=== PATIENT | female | born 1965 | race Caucasian/White ===

== ENCOUNTER → 2016-08-14 | Outpatient (CLI) | payer BC ==
--- NOTE | 2016-08-21 19:34 | ECHO ---
The echocardiogram report can be seen in this patient's EMR in the Reports section. RAUDEL
== END ==
LOC: MW.US 14:02
PROVIDERS: ATTEND Internal Medicine
DX: I48.91 Unspecified atrial fibrillation (principal)
CPT/HCPCS: 93306

== ENCOUNTER → 2016-08-27 | Outpatient (CLI) | payer BC | END | disposition home or self-care (01) | LOC: MW.RT 13:16 | PROVIDERS: ADMIT Internal Medicine; ATTEND Internal Medicine | DX: I48.91 Unspecified atrial fibrillation (principal); E03.9 Hypothyroidism, unspecified; Z79.899 Other long term (current) drug therapy | CPT/HCPCS: 93270 ==

== ENCOUNTER 2016-12-25 21:19 | Observation (INO) | payer BC ==
[2016-12-25] MEDS ORDERED: Diltiazem 25 MG/5 ML SDV IVPUSH ONE (21:30)
[2016-12-25] MEDS ORDERED: Diltiazem 100 MG in Sodium Chloride 0.9% 100 ML IV SCH (21:30)
[2016-12-25] MEDS ORDERED: Aspirin 81 MG Tab.Chew PO ONE (21:31)
[2016-12-25] MEDS ORDERED: Sodium Chloride 0.9% 1,000 ML IV ONE (21:31)
[2016-12-25] MEDS ORDERED: Sodium Chloride 0.9% 2.5 ML Syringe FLUSH PRN (21:31)
[2016-12-25] MEDS ORDERED: Sodium Chloride 0.9% 10 ML Syringe FLUSH PRN (21:31)
--- NOTE | 2016-12-25 21:39 | EDM.PDOC ---
ED HPI GENERAL MEDICAL PROBLEM - General Stated Complaint: UNK Time Seen by Provider: 12/25/16 21:31 Source of Information: Reports: Patient, Family History Limitations: Reports: No Limitations - History of Present Illness INITIAL COMMENTS - FREE TEXT/NARRATIVE: HISTORY AND PHYSICAL: []50-year-old female presenting with atrial fibrillation with rapid ventricular response History of Present Illness: []Patient with history of rapid atrial fibrillation with rapid ventricular response that responded in the past to Cardizem Patient sees Dr. Romero Review of Systems: As per history of present illness and below otherwise all systems reviewed and negative. Past medical history: As per history of present illness and as reviewed below otherwise noncontributory. Surgical history: As per history of present illness and as reviewed below otherwise noncontributory. Social history: No reported history of drug or alcohol abuse. Family history: As per history of present illness and as reviewed below otherwise noncontributory. Physical exam: Alert and oriented female not short of breath when she is speaking in full sentences HEENT: Atraumatic, normocehpalic, pupils reactive, negative for conjunctival pallor or scleral icterus, mucous membranes moist, throat clear, neck supple, nontender, trachea midline. Lungs: Clear to auscultation, breath sounds equal bilaterally, chest non tender. Heart: S1S2, regular, negative for clicks, rubs, or JVD. Abdomen: Soft, nondistended, nontender. Negative for masses or hepatossplenmegaly. Negative for costovertebral tenderness. Pelvis: Stable nontender. Genitourinary: Deferred. Rectal: Deferred Extremities: Atraumatic, negative for cords or calf pain. Neurovascular unremarkable. Neuro: Awake, alert, oriented. Cranial nerves II through XII unremarkable. Cerebellum unremarkable. Motor and sensory unremarkable throughout. Exam nonfocal. 10 mg Cardizem given IV push reduced her rate to 80s -100s. Discussed patient with Dr. Sanches was agreeable to refer for observation on October Cardizem drip Diagnostics: [Chest pain protocol] Therapeutics: [Cardizem 10 mg push/Cardizem drip] Impression: [Atrial fibrillation with rapid ventricular response ] Plan: [Referred for observation/ICU Definitive disposition and diagnosis as appropriate pending reevaluation and review of above. Onset: Sudden Duration: Hour(s): Location: Reports: Chest - Related Data Allergies Allergy/AdvReac Type Severity Reaction Status Date / Time No Known Allergies Allergy Verified 07/06/16 11:40 Home Meds: Home Meds Levothyroxine Sodium [Synthroid] 125 mcg PO ACBRK 10/28/14 [History] Aspirin [Low Dose Aspirin EC] 81 mg PO DAILY #30 tablet. 07/07/16 [Rx] Past Medical History Endocrine/Metabolic History: Reports: Hypothyroidism - Infectious Disease History Infectious Disease History: Reports: Chicken Pox - Past Surgical History Other Musculoskeletal Surgeries/Procedures:: carpal tunnel to both wrists and R heel bone spurs removed Social & Family History - Family History Cardiac: Reports: Afib - Tobacco Use Smoking Status *Q: Never Smoker - Caffeine Use Caffeine Use: Reports: Soda - Recreational Drug Use Recreational Drug Use: No Drug Use in Last 12 Months: No ED ROS GENERAL - Review of Systems Review Of Systems: ROS reveals no pertinent complaints other than HPI. ED EXAM, GENERAL - Physical Exam Exam: See Below (See dictation) Course - Vital Signs Last Recorded V/S: Last Vital Signs Temp 36.9 C 12/25/16 21:33 Pulse 146 H 12/25/16 21:33 Resp 18 12/25/16 21:33 BP 181/99 H 12/25/16 21:33 Pulse Ox 94 L 12/25/16 21:33 - Orders/Labs/Meds Orders: Active Orders 24 hr Category Date Time Status Cardiac Monitoring [RC] . DIRECTED Care 12/25/16 21:31 Active EKG Documentation Completion [RC] STAT Care 12/25/16 21:31 Active Oxygen Therapy [RC] ASDIRECTED Care 12/25/16 21:31 Active Chest 1V Frontal [CR] Stat Exams 12/25/16 21:31 Ordered CBC WITH AUTO DIFF [HEME] Stat Lab 12/25/16 21:31 Ordered COMPREHENSIVE METABOLIC PN,CMP [CHEM] Stat Lab 12/25/16 21:31 Ordered MAGNESIUM [CHEM] Stat Lab 12/25/16 21:59 Ordered TROPONIN I [CHEM] Stat Lab 12/25/16 21:31 Ordered Diltiazem [Cardizem] 100 mg Med 12/25/16 21:30 Active Sodium Chloride 0.9% [Normal Saline] 100 ml IV TITRATE Sodium Chloride 0.9% [Normal Saline] 1,000 ml Med 12/25/16 21:31 Active IV .Bolus Sodium Chloride 0.9% [Saline Flush] Med 12/25/16 21:31 Active 10 ml FLUSH ASDIRECTED PRN Sodium Chloride 0.9% [Saline Flush] Med 12/25/16 21:31 Active 2.5 ml FLUSH ASDIRECTED PRN Saline Lock Insert [OM.PC] Stat Oth 12/25/16 21:31 Ordered Medication Orders Diltiazem HCl 100 mg/ Sodium (Chloride) 100 mls @ 10 mls/hr IV TITRATE FERNANDO; 10 MG/HR PRN Reason: Protocol Sodium Chloride (Normal Saline) 1,000 mls @ 999 mls/hr IV .Bolus ONE Stop: 12/25/16 22:31 Sodium Chloride (Saline Flush) 10 ml FLUSH ASDIRECTED PRN PRN Reason: Keep Vein Open Sodium Chloride (Saline Flush) 2.5 ml FLUSH ASDIRECTED PRN PRN Reason: Keep Vein Open Meds: Medications Generic Name Dose Route Start Last Admin Trade Name Freq PRN Reason Stop Dose Admin Diltiazem HCl 100 mg/ Sodium 100 mls @ 10 mls/hr 12/25/16 21:30 Chloride IV TITRATE FERNANDO Protocol 10 MG/HR Sodium Chloride 1,000 mls @ 999 mls/hr 12/25/16 21:31 Normal Saline IV 12/25/16 22:31 .Bolus ONE Sodium Chloride 10 ml 12/25/16 21:31 Saline Flush FLUSH ASDIRECTED PRN Keep Vein Open Sodium Chloride 2.5 ml 12/25/16 21:31 Saline Flush FLUSH ASDIRECTED PRN Keep Vein Open Discontinued Medications Generic Name Dose Route Start Last Admin Trade Name Freq PRN Reason Stop Dose Admin Aspirin 324 mg 12/25/16 21:31 Aspirin PO 12/25/16 21:32 ONETIME ONE Diltiazem HCl 10 mg 12/25/16 21:30 12/25/16 21:44 Diltiazem IVPUSH 12/25/16 21:31 10 mg ONETIME ONE Administration Departure - Departure Time of Disposition: 22:09 Disposition: Refer to Observation Condition: Fair Clinical Impression: Atrial fibrillation with RVR Atrial fibrillation Qualifiers: Atrial fibrillation type: unspecified Qualified Code(s): I48.91 - Unspecified atrial fibrillation - My Orders Last 24 Hours: My Active Orders 12/25/16 21:30 Diltiazem [Cardizem] 100 mg Sodium Chloride 0.9% [Normal Saline] 100 ml IV TITRATE 12/25/16 21:31 Cardiac Monitoring [RC] . DIRECTED EKG Documentation Completion [RC] STAT Oxygen Therapy [RC] ASDIRECTED Chest 1V Frontal [CR] Stat CBC WITH AUTO DIFF [HEME] Stat COMPREHENSIVE METABOLIC PN,CMP [CHEM] Stat TROPONIN I [CHEM] Stat Sodium Chloride 0.9% [Normal Saline] 1,000 ml IV .Bolus Sodium Chloride 0.9% [Saline Flush] 10 ml FLUSH ASDIRECTED PRN Sodium Chloride 0.9% [Saline Flush] 2.5 ml FLUSH ASDIRECTED PRN Saline Lock Insert [OM.PC] Stat 12/25/16 21:59 MAGNESIUM [CHEM] Stat - Assessment/Plan Last 24 Hours: My Active Orders 12/25/16 21:30 Diltiazem [Cardizem] 100 mg Sodium Chloride 0.9% [Normal Saline] 100 ml IV TITRATE 12/25/16 21:31 Cardiac Monitoring [RC] . DIRECTED EKG Documentation Completion [RC] STAT Oxygen Therapy [RC] ASDIRECTED Chest 1V Frontal [CR] Stat CBC WITH AUTO DIFF [HEME] Stat COMPREHENSIVE METABOLIC PN,CMP [CHEM] Stat TROPONIN I [CHEM] Stat Sodium Chloride 0.9% [Normal Saline] 1,000 ml IV .Bolus Sodium Chloride 0.9% [Saline Flush] 10 ml FLUSH ASDIRECTED PRN Sodium Chloride 0.9% [Saline Flush] 2.5 ml FLUSH ASDIRECTED PRN Saline Lock Insert [OM.PC] Stat 12/25/16 21:59 MAGNESIUM [CHEM] Stat
[2016-12-25 22:30] LABS: CHLORIDE,CL 110 mmol/L (98-110); SODIUM,NA 145 mmol/L (136-146)
[2016-12-26] MEDS ORDERED: Acetaminophen 325 MG Tab PO PRN (00:41)
--- NOTE | 2016-12-26 00:53 | PCM.HP ---
H&P History of Present Illness - General Admit Problem/Dx: Admission Diagnosis/Problem Admission Diagnosis/Problem Atrial fibrillation - History of Present Illness Initial Comments - Free Text/Narative: 51 yo female with pmh of paroxysmal atrial fibrillation with who was admitted five months ago for atrial fibrillation with RVR. She was doing well until this month she noticed a return of her palpitations. her palpitation are normally short lived but today her palpitations did no go away. She discontinued her metorpolol after being on it for two months due to side effect of fatigue. She was seen in the ED and noted to be in atrial fibrillation with ventricular rate of 160 bpm. She was started on a diltiazem drip in the ED. She had a normal echocardiogram on 08/14/16 with EF of 60%. - Related Data Allergies/Adverse Reactions: Allergies Allergy/AdvReac Type Severity Reaction Status Date / Time No Known Allergies Allergy Verified 07/06/16 11:40 Home Medications: Home Meds RX: Levothyroxine Sodium [Synthroid] 125 mcg PO ACBRK 10/28/14 [History] RX: Aspirin [Low Dose Aspirin EC] 81 mg PO DAILY #30 tablet.dr 07/07/16 [Rx] Diltiazem HCl [Diltiazem 24Hr Cd] 120 mg PO DAILY #30 cap.er.24h 12/26/16 [Rx] Past Medical History Cardiovascular History: Reports: Afib Endocrine/Metabolic History: Reports: Hypothyroidism - Infectious Disease History Infectious Disease History: Reports: Chicken Pox - Past Surgical History Other Musculoskeletal Surgeries/Procedures:: carpal tunnel to both wrists and R heel bone spurs removed Social & Family History - Family History Family Medical History: Noncontributory Cardiac: Reports: Afib - Tobacco Use Smoking Status *Q: Never Smoker Second Hand Smoke Exposure: No - Caffeine Use Caffeine Use: Reports: Soda - Recreational Drug Use Recreational Drug Use: No Drug Use in Last 12 Months: No H&P Review of Systems - Review of Systems: Review Of Systems: ROS reveals no pertinent complaints other than HPI. Exam - Exam Exam: See Below - Vital Signs Vital Signs: Last Vital Signs Temp 36.8 C 12/25/16 23:09 Pulse 88 12/25/16 23:09 Resp 18 12/25/16 23:09 BP 126/82 12/25/16 23:09 Pulse Ox 95 12/25/16 23:09 Weight: 87.09 kg - Exam General: Alert, Oriented, 4 HEENT: Mucosa Moist & [place] Cardiovascular: Regular Rate, Irregular Rhythm GI/Abdominal Exam: Normal Bowel Sounds, Soft, Non-Tender, No Organomegaly, No Distention, No Abnormal Bruit, No Mass, Pelvis Stable Extremities: No Pedal Edema Skin: Warm, Dry, Intact - Patient Data Lab Results Last 24 hrs: Laboratory Results - last 24 hr 12/25/16 12/25/16 12/25/16 Range/Units 22:03 22:03 22:03 WBC 6.35 (4.0-11.0) K/uL RBC 4.56 (4.30-5.90) M/uL Hgb 13.3 (12.0-16.0) g/dL Hct 40.9 (36.0-46.0) % MCV 89.7 (80.0-98.0) fL MCH 29.2 (27.0-32.0) pg MCHC 32.5 (31.0-37.0) g/dL RDW Std Deviation 42.3 (28.0-62.0) fl RDW Coeff of Mariano 13 (11.0-15.0) % Plt Count 236 (150-400) K/uL MPV 10.40 (7.40-12.00) fL Neut % (Auto) 53.1 (48.0-80.0) % Lymph % (Auto) 31.8 (16.0-40.0) % [place] % (Auto) 11.7 (0.0-15.0) % Eos % (Auto) 2.8 (0.0-7.0) % Baso % (Auto) 0.6 (0.0-1.5) % Neut # (Auto) 3.4 (1.4-5.7) K/uL Lymph # (Auto) 2.0 (0.6-2.4) K/uL [place] # (Auto) 0.7 (0.0-0.8) K/uL Eos # (Auto) 0.2 (0.0-0.7) K/uL Baso # (Auto) 0.0 (0.0-0.1) K/uL Nucleated RBC % 0.0 /100WBC Nucleated RBCs # 0 K/uL Sodium 145 (136-146) mmol/L Potassium 4.0 (3.5-5.1) mmol/L Chloride 110 (98-110) mmol/L Carbon Dioxide 26 (21-31) mmol/L BUN 22 (6.0-23.0) mg/dL Creatinine 0.8 (0.6-1.5) mg/dL Est Cr Clr Drug Dosing 76.13 mL/min Estimated GFR (MDRD) > 60.0 ml/min Glucose 101 (60-110) mg/dL Calcium 9.2 (8.8-10.8) mg/dL Magnesium (1.5-2.3) mEq/L Total Bilirubin 0.3 (0.1-1.5) mg/dL AST 24 (5-40) IU/L ALT 32 (8-54) IU/L Alkaline Phosphatase 111 (40-150) Troponin I < 0.10 (0.0-0.29) NG/ML Total Protein 7.2 (6.0-8.0) g/dL Albumin 4.1 (3.5-5.0) g/dL Globulin 3.1 (2.0-3.5) g/dL Albumin/Globulin Ratio 1.3 (1.3-2.8) 12/25/16 Range/Units 22:03 WBC (4.0-11.0) K/uL RBC (4.30-5.90) M/uL Hgb (12.0-16.0) g/dL Hct (36.0-46.0) % MCV (80.0-98.0) fL MCH (27.0-32.0) pg MCHC (31.0-37.0) g/dL RDW Std Deviation (28.0-62.0) fl RDW Coeff of Mariano (11.0-15.0) % Plt Count (150-400) K/uL MPV (7.40-12.00) fL Neut % (Auto) (48.0-80.0) % Lymph % (Auto) (16.0-40.0) % [place] % (Auto) (0.0-15.0) % Eos % (Auto) (0.0-7.0) % Baso % (Auto) (0.0-1.5) % Neut # (Auto) (1.4-5.7) K/uL Lymph # (Auto) (0.6-2.4) K/uL [place] # (Auto) (0.0-0.8) K/uL Eos # (Auto) (0.0-0.7) K/uL Baso # (Auto) (0.0-0.1) K/uL Nucleated RBC % /100WBC Nucleated RBCs # K/uL Sodium (136-146) mmol/L Potassium (3.5-5.1) mmol/L Chloride (98-110) mmol/L Carbon Dioxide (21-31) mmol/L BUN (6.0-23.0) mg/dL Creatinine (0.6-1.5) mg/dL Est Cr Clr Drug Dosing mL/min Estimated GFR (MDRD) ml/min Glucose (60-110) mg/dL Calcium (8.8-10.8) mg/dL Magnesium 1.9 (1.5-2.3) mEq/L Total Bilirubin (0.1-1.5) mg/dL AST (5-40) IU/L ALT (8-54) IU/L Alkaline Phosphatase (40-150) Troponin I (0.0-0.29) NG/ML Total Protein (6.0-8.0) g/dL Albumin (3.5-5.0) g/dL Globulin (2.0-3.5) g/dL Albumin/Globulin Ratio (1.3-2.8) Result Diagrams: 12/25/16 22:03 12/26/16 06:07 *Q Meaningful Use (ADM) - VTE *Q VTE Criteria *Q: - Stroke *Q Stroke Criteria *Q: - AMI *Q AMI Criteria *Q: Problem List Initiated/Reviewed/Updated: Yes Orders Last 24hrs: Active Orders 24 hr Category Date Time Status Antiembolic Devices [RC] PER UNIT ROUTINE Care 12/26/16 00:44 Ordered Oxygen Therapy [RC] PRN Care 12/26/16 00:32 Ordered Up ad Kathia [RC] ASDIRECTED Care 12/26/16 00:32 Ordered VTE/DVT Education [RC] PER UNIT ROUTINE Care 12/26/16 00:32 Ordered Vital Signs [RC] Q4H Care 12/26/16 00:32 Ordered Regular Diet [DIET] Diet 12/26/16 Breakfast Ordered BASIC METABOLIC PANEL,BMP [CHEM] AM Lab 12/26/16 05:11 Ordered TROPONIN I [CHEM] Q6H Lab 12/26/16 06:00 Ordered TROPONIN I [CHEM] Q6H Lab 12/26/16 12:00 Ordered Acetaminophen [Tylenol] Med 12/26/16 00:41 Ordered 650 mg PO Q4H PRN Diltiazem [Cardizem] Med 12/26/16 00:45 Ordered 30 mg PO Q6HR Enoxaparin [Lovenox] Med 12/26/16 09:00 Ordered 40 mg SUBCUT DAILY Sequential Compression Device [OM.PC] Per Unit Routine Oth 12/26/16 00:43 Ordered Resuscitation Status Routine Resus Stat 12/26/16 00:32 Ordered Medication Orders Acetaminophen (Tylenol) 650 mg PO Q4H PRN PRN Reason: Pain (Mild 1-3)/fever Diltiazem HCl (Cardizem) 30 mg PO Q6HR FERNANDO Enoxaparin Sodium (Lovenox) 40 mg SUBCUT DAILY FERNANDO Diltiazem HCl 100 mg/ Sodium (Chloride) 100 mls @ 10 mls/hr IV TITRATE FERNANDO; 10 MG/HR PRN Reason: Protocol Last Titration: 12/25/16 21:53 Dose: 5 mg/hr, 5 mls/hr Admin: 12/25/16 21:53 Dose: 10 mg/hr, 10 mls/hr Sodium Chloride (Saline Flush) 10 ml FLUSH ASDIRECTED PRN PRN Reason: Keep Vein Open Sodium Chloride (Saline Flush) 2.5 ml FLUSH ASDIRECTED PRN PRN Reason: Keep Vein Open Assessment/Plan Comment:: 51 yo female admitted with atrial fibrillation with RVR. We will start Cardizem PO and titrate for rate control while weaning off diltiazem drip. Patient is on daily ASA at home and will resume.
[2016-12-26] MEDS: Diltiazem IR 30 MG Tab PO SCH ×3 (01:50→11:54)
[2016-12-26 06:37] LABS: CHLORIDE,CL 112 mmol/L (98-110); SODIUM,NA 143 mmol/L (136-146)
[2016-12-26] MEDS ORDERED: Enoxaparin 40 MG/0.4 ML Syringe SUBCUT SCH (09:00)
--- NOTE | 2016-12-26 09:55 | CR ---
EXAM DATE: 12/25/16 PATIENT'S AGE: 51 Patient: JEROME MILTON Facility: [place], [place] Site . Site : [id number] Study: XRay Chest [id number] 10:23:58 PM Ordering Physician: Doctor Lobo Final Report: INDICATION: pain CHEST, ONE VIEW An AP radiograph of the chest was performed. Comparison: 07/06/2016. The lungs appear clear and no pleural effusions are identified. The cardiomediastinal silhouette and pulmonary vasculature appear normal, as do the visualized bones. IMPRESSION: No acute intrathoracic abnormality identified. ANGELA RIBERA MD [employer] Dictated by: Cas Ribera MD @ 12/25/2016 22:27:20 (Electronic Signature) Report Signed by Proxy. [facility]
--- NOTE | 2016-12-26 12:16 | PCM.DCSUM1 ---
Discharge Summary - Discharge Data Discharge Date: 12/26/16 Discharge Disposition: Home, Self-Care 01 Condition: Good - Patient Summary/Data Hospital Course: Admission diagnosis Atrial fibrillation with RVR. 51 yo female with pmh of paroxysmal atrial fibrillation who was admitted for atrial fibrillation with RVR. She was doing well until this month she noticed a return of her palpitations. Her palpitation are normally short lived but the day of admission her palpitations did no go away. he was seen in the ED and noted to be in atrial fibrillation with ventricular rate of 160 bpm. She was started on a diltiazem drip in the ED. She was started on oral diltiazem and titrated off the diltiazem drip. Her heart rate off the diltiazem drip has been 70s-90. She was discharged home with diltiazem CR 120mg daily with daily aspirin. She is to follow up with Dr. Paiz and Dr. Nolan. - Patient Instructions Diet: Regular Diet as Tolerated Activity: As Tolerated - Discharge Plan Prescriptions/Med Rec: Diltiazem HCl [Diltiazem 24Hr Cd] 120 mg PO DAILY #30 cap.er.24h Home Medications: Home Meds RX: Levothyroxine Sodium [Synthroid] 125 mcg PO ACBRK 10/28/14 [History] RX: Aspirin [Low Dose Aspirin EC] 81 mg PO DAILY #30 tablet. 07/07/16 [Rx] Diltiazem HCl [Diltiazem 24Hr Cd] 120 mg PO DAILY #30 cap.er.24h 12/26/16 [Rx] Patient Handouts: Atrial Fibrillation, [id number] Referrals: Mak Paiz MD [Primary Care Provider] - 01/03/17 Julio Nolan MD [Family Provider] - - Patient Data Vitals - Most Recent: Last Vital Signs Temp 36.3 C 12/26/16 07:58 Pulse 77 12/26/16 11:00 Resp 21 H 12/26/16 11:00 BP 127/73 12/26/16 11:00 Pulse Ox 98 12/26/16 11:00 Weight - Most Recent: 87.09 kg I&O - Last 24 hours: Intake & Output 12/25/16 12/26/16 12/26/16 22:59 06:59 14:59 Intake Total 100 Output Total 0 Balance 100 Lab Results - Last 24 hrs: Laboratory Results - last 24 hr 12/25/16 12/25/16 12/25/16 Range/Units 22:03 22:03 22:03 WBC 6.35 (4.0-11.0) K/uL RBC 4.56 (4.30-5.90) M/uL Hgb 13.3 (12.0-16.0) g/dL Hct 40.9 (36.0-46.0) % MCV 89.7 (80.0-98.0) fL MCH 29.2 (27.0-32.0) pg MCHC 32.5 (31.0-37.0) g/dL RDW Std Deviation 42.3 (28.0-62.0) fl RDW Coeff of Mariano 13 (11.0-15.0) % Plt Count 236 (150-400) K/uL MPV 10.40 (7.40-12.00) fL Neut % (Auto) 53.1 (48.0-80.0) % Lymph % (Auto) 31.8 (16.0-40.0) % [place] % (Auto) 11.7 (0.0-15.0) % Eos % (Auto) 2.8 (0.0-7.0) % Baso % (Auto) 0.6 (0.0-1.5) % Neut # (Auto) 3.4 (1.4-5.7) K/uL Lymph # (Auto) 2.0 (0.6-2.4) K/uL [place] # (Auto) 0.7 (0.0-0.8) K/uL Eos # (Auto) 0.2 (0.0-0.7) K/uL Baso # (Auto) 0.0 (0.0-0.1) K/uL Nucleated RBC % 0.0 /100WBC Nucleated RBCs # 0 K/uL Sodium 145 (136-146) mmol/L Potassium 4.0 (3.5-5.1) mmol/L Chloride 110 (98-110) mmol/L Carbon Dioxide 26 (21-31) mmol/L BUN 22 (6.0-23.0) mg/dL Creatinine 0.8 (0.6-1.5) mg/dL Est Cr Clr Drug Dosing 76.13 mL/min Estimated GFR (MDRD) > 60.0 ml/min Glucose 101 (60-110) mg/dL Calcium 9.2 (8.8-10.8) mg/dL Magnesium (1.5-2.3) mEq/L Total Bilirubin 0.3 (0.1-1.5) mg/dL AST 24 (5-40) IU/L ALT 32 (8-54) IU/L Alkaline Phosphatase 111 (40-150) Troponin I < 0.10 (0.0-0.29) NG/ML Total Protein 7.2 (6.0-8.0) g/dL Albumin 4.1 (3.5-5.0) g/dL Globulin 3.1 (2.0-3.5) g/dL Albumin/Globulin Ratio 1.3 (1.3-2.8) 12/25/16 12/26/16 12/26/16 Range/Units 22:03 06:07 06:07 WBC (4.0-11.0) K/uL RBC (4.30-5.90) M/uL Hgb (12.0-16.0) g/dL Hct (36.0-46.0) % MCV (80.0-98.0) fL MCH (27.0-32.0) pg MCHC (31.0-37.0) g/dL RDW Std Deviation (28.0-62.0) fl RDW Coeff of Mariano (11.0-15.0) % Plt Count (150-400) K/uL MPV (7.40-12.00) fL Neut % (Auto) (48.0-80.0) % Lymph % (Auto) (16.0-40.0) % [place] % (Auto) (0.0-15.0) % Eos % (Auto) (0.0-7.0) % Baso % (Auto) (0.0-1.5) % Neut # (Auto) (1.4-5.7) K/uL Lymph # (Auto) (0.6-2.4) K/uL [place] # (Auto) (0.0-0.8) K/uL Eos # (Auto) (0.0-0.7) K/uL Baso # (Auto) (0.0-0.1) K/uL Nucleated RBC % /100WBC Nucleated RBCs # K/uL Sodium 143 (136-146) mmol/L Potassium 4.0 (3.5-5.1) mmol/L Chloride 112 H (98-110) mmol/L Carbon Dioxide 24 (21-31) mmol/L BUN 19 (6.0-23.0) mg/dL Creatinine 0.7 (0.6-1.5) mg/dL Est Cr Clr Drug Dosing 87.01 mL/min Estimated GFR (MDRD) > 60.0 ml/min Glucose 100 (60-110) mg/dL Calcium 8.7 L (8.8-10.8) mg/dL Magnesium 1.9 (1.5-2.3) mEq/L Total Bilirubin (0.1-1.5) mg/dL AST (5-40) IU/L ALT (8-54) IU/L Alkaline Phosphatase (40-150) Troponin I < 0.10 (0.0-0.29) NG/ML Total Protein (6.0-8.0) g/dL Albumin (3.5-5.0) g/dL Globulin (2.0-3.5) g/dL Albumin/Globulin Ratio (1.3-2.8) Med Orders - Current: Current Medications Acetaminophen (Tylenol) 650 mg PO Q4H PRN PRN Reason: Pain (Mild 1-3)/fever Last Admin: 12/26/16 11:57 Dose: 650 mg Diltiazem HCl (Cardizem) 30 mg PO Q6HR FERNANDO Last Admin: 12/26/16 11:54 Dose: 30 mg Enoxaparin Sodium (Lovenox) 40 mg SUBCUT DAILY FERNANDO Last Admin: 12/26/16 08:01 Dose: 40 mg Diltiazem HCl 100 mg/ Sodium (Chloride) 100 mls @ 10 mls/hr IV TITRATE FERNANDO; 10 MG/HR PRN Reason: Protocol Last Titration: 12/26/16 10:33 Dose: 0 mg/hr, 0 mls/hr Sodium Chloride (Saline Flush) 10 ml FLUSH ASDIRECTED PRN PRN Reason: Keep Vein Open Sodium Chloride (Saline Flush) 2.5 ml FLUSH ASDIRECTED PRN PRN Reason: Keep Vein Open Discontinued Medications Aspirin (Aspirin) 324 mg PO ONETIME ONE Stop: 12/25/16 21:32 Last Admin: 12/25/16 22:07 Dose: 324 mg Diltiazem HCl (Diltiazem) 10 mg IVPUSH ONETIME ONE Stop: 12/25/16 21:31 Last Admin: 12/25/16 21:44 Dose: 10 mg Sodium Chloride (Normal Saline) 1,000 mls @ 999 mls/hr IV .Bolus ONE Stop: 12/25/16 22:31 Last Admin: 12/25/16 22:07 Dose: 999 mls/hr *Q Meaningful Use (DIS) - VTE *Q VTE Criteria *Q: - Stroke *Q Stroke Criteria *Q: - AMI *Q AMI Criteria *Q:
[2016-12-26 13:48] VITALS: BP 110/81
== END 2016-12-26 13:15 | disposition home or self-care (01) ==
LOC: MW.ED 21:19 → MW.ICU 22:02
PROVIDERS: ADMIT Internal Medicine; ATTEND Internal Medicine
DX: I48.91 Unspecified atrial fibrillation (principal); E03.9 Hypothyroidism, unspecified; Z98.890 Other specified postprocedural states; Z79.82 Long term (current) use of aspirin; Z79.899 Other long term (current) drug therapy
CPT/HCPCS: 36415; 71010; 80048; 80053; 83735; 84484; 85025; 93005; 96365; 96366; 96372; 96376; 99285; A9270; G0378; J1650; J7030; J7040; 99284; J3490

== ENCOUNTER 2017-01-24 11:00 | Emergency (ER) | payer BC ==
[2017-01-24] MEDS ORDERED: Diltiazem 25 MG/5 ML SDV IVPUSH ONE (11:11)
[2017-01-24] MEDS ORDERED: Enoxaparin 100 MG/1 ML Syringe SUBCUT ONE (11:12)
[2017-01-24] MEDS ORDERED: Sodium Chloride 0.9% 1,000 ML IV ONE (11:13)
[2017-01-24] MEDS ORDERED: Aspirin 81 MG Tab.Chew PO ONE (11:14)
--- NOTE | 2017-01-24 11:23 | EDM.PDOC ---
ED HPI GENERAL MEDICAL PROBLEM - General Chief Complaint: Cardiovascular Problem Stated Complaint: PALPITATIONS Time Seen by Provider: 01/24/17 11:18 Source of Information: Reports: Patient History Limitations: Reports: No Limitations - History of Present Illness INITIAL COMMENTS - FREE TEXT/NARRATIVE: HISTORY AND PHYSICAL: 51-year-old female presents to the emergency room today with complaints of palpitations History of present illness: 51-year-old female presents to the emergency room today with complaints of palpitations. Patient has a past history of SVT with successful conversion and atrial fibrillation. Sees her psychiatric lpn, Dr. Walters. Patient reports that she was started on metoprolol with her new diagnosis of atrial fibrillation approximately 3-4 months ago. At that time she had concerns that it was making her very tired and she weaned herself off of the metoprolol without consulting her psychiatric lpn. She had gone 2 months without any form of medication area and at that time she came to the emergency room in December and was admitted for uncontrolled atrial fibrillation she is discharged to home on Cardizem. States that she had several episodes of feeling these palpitations followed up with her psychiatric lpn and was switched last week back to metoprolol. Today while at work she started having hot flashes and felt her chest pulsating with palpitations. Currently denies any chest pain, nausea, shortness of breath. Review of systems: As per history of present illness and below otherwise all systems reviewed and negative. Past medical history: As per history of present illness and as reviewed below otherwise noncontributory. Surgical history: As per history of present illness and as reviewed below otherwise noncontributory. Social history: No reported history of drug or alcohol abuse. Family history: As per history of present illness and as reviewed below otherwise noncontributory. Physical exam: Gen.: Nontoxic-appearing 51-year-old female. Able to speak in full sentences without shortness of breath. Answers questions appropriately. Alert and oriented HEENT: Atraumatic, normocephalic, pupils reactive, negative for conjunctival pallor or scleral icterus, mucous membranes moist, throat clear, neck supple, nontender, trachea midline. Lungs: Clear to auscultation, breath sounds equal bilaterally, chest nontender. Heart: S1S2, irregular with heart rate varying from 108 to 170s, negative for clicks, rubs, or JVD. Abdomen: Soft, nondistended, nontender. Negative for masses or hepatosplenomegaly. Negative for costovertebral tenderness. Pelvis: Stable nontender. Genitourinary: Deferred. Rectal: Deferred. Extremities: Atraumatic, negative for cords or calf pain. Neurovascular unremarkable. Skin: Neck and face are flushed, clammy, intact. No obvious lesions or open sores Neuro: Awake, alert, oriented. Cranial nerves II through XII unremarkable. Cerebellum unremarkable. Motor and sensory unremarkable throughout. Exam nonfocal. Dr. Bermudez came to patient that side to evaluate patient. Diagnostics: CBC, CMP, TSH, troponin, EKG, two-view chest x-ray Therapeutics: 3 chewable aspirin (had one chewable aspirin 81 mg prior to arrival), oxygen, monitor, Cardizem IV Impression: Atrial fibrillation with RVR Hyperthyroidism Plan: 1. Patient will start her metoprolol 50 mg twice daily by mouth and start Xarelto to 20 mg 1 tablet daily as directed by her psychiatric lpn. Dr. Bermudez to see her on Saturday. 2. Please follow-up with your primary care provider or endocrinologists to follow-up on your thyroid level. As this medication may to be adjusted. 3. If symptoms return or worsen please follow-up in the emergency room as directed as discussed Definitive disposition and diagnosis as appropriate pending reevaluation and review of above. Onset: Today Onset Date: 01/24/17 Duration: Minutes: (Teen minutes prior to arrival) - Related Data Allergies Allergy/AdvReac Type Severity Reaction Status Date / Time No Known Allergies Allergy Verified 01/24/17 11:12 Home Meds: Home Meds Levothyroxine Sodium [Synthroid] 125 mcg PO ACBRK 10/28/14 [History] Aspirin [Low Dose Aspirin EC] 81 mg PO DAILY #30 tablet. 07/07/16 [Rx] Metoprolol Succinate [Toprol XL] 50 mg PO DAILY 01/24/17 [History] Past Medical History Cardiovascular History: Reports: Afib Endocrine/Metabolic History: Reports: Hypothyroidism - Infectious Disease History Infectious Disease History: Reports: Chicken Pox - Past Surgical History Other Musculoskeletal Surgeries/Procedures:: carpal tunnel to both wrists and R heel bone spurs removed Social & Family History - Family History Family Medical History: Noncontributory Cardiac: Reports: Afib - Tobacco Use Smoking Status *Q: Never Smoker Second Hand Smoke Exposure: No - Caffeine Use Caffeine Use: Reports: Soda Other Caffeine Use: Small amount only - Recreational Drug Use Recreational Drug Use: No Drug Use in Last 12 Months: No ED ROS GENERAL - Review of Systems Review Of Systems: See Below ED EXAM, GENERAL - Physical Exam Exam: See Below (See dictation) EKG INTERPRETATION Rhythm: A-Fib (With RVR) Rate (Beats/Min): 156 Course - Vital Signs Last Recorded V/S: Last Vital Signs Temp 98.4 F 01/24/17 11:05 Pulse 102 H 01/24/17 14:23 Resp 16 01/24/17 14:23 BP 117/84 01/24/17 14:23 Pulse Ox 96 01/24/17 14:23 - Orders/Labs/Meds Orders: Active Orders 24 hr Category Date Time Status EKG Documentation Completion [RC] STAT Care 01/24/17 11:14 Active Metoprolol Succinate [Toprol XL] Med 01/24/17 12:45 Active 50 mg PO DAILY Sodium Chloride 0.9% [Normal Saline] 1,000 ml Med 01/24/17 11:13 Active IV STAT Medication Orders Sodium Chloride (Normal Saline) 1,000 mls @ 250 mls/hr IV STAT ONE Stop: 01/24/17 15:12 Last Admin: 01/24/17 11:29 Dose: 250 mls/hr Metoprolol Succinate (Toprol Xl) 50 mg PO DAILY [facility] Last Admin: 01/24/17 12:48 Dose: 50 mg Labs: Laboratory Tests 01/24/17 01/24/17 01/24/17 Range/Units 11:37 11:37 11:37 WBC 7.44 (4.0-11.0) K/uL RBC 4.92 (4.30-5.90) M/uL Hgb 14.6 (12.0-16.0) g/dL Hct 43.9 (36.0-46.0) % MCV 89.2 (80.0-98.0) fL MCH 29.7 (27.0-32.0) pg MCHC 33.3 (31.0-37.0) g/dL RDW Std Deviation 42.9 (28.0-62.0) fl RDW Coeff of Mariano 13 (11.0-15.0) % Plt Count 283 (150-400) K/uL MPV 10.30 (7.40-12.00) fL Neut % (Auto) 63.2 (48.0-80.0) % Lymph % (Auto) 24.9 (16.0-40.0) % Graves % (Auto) 9.9 (0.0-15.0) % Eos % (Auto) 1.5 (0.0-7.0) % Baso % (Auto) 0.5 (0.0-1.5) % Neut # (Auto) 4.7 (1.4-5.7) K/uL Lymph # (Auto) 1.9 (0.6-2.4) K/uL Graves # (Auto) 0.7 (0.0-0.8) K/uL Eos # (Auto) 0.1 (0.0-0.7) K/uL Baso # (Auto) 0.0 (0.0-0.1) K/uL Nucleated RBC % 0.0 /100WBC Nucleated RBCs # 0 K/uL INR 0.98 (0.86-1.11) Sodium 142 (136-146) mmol/L Potassium 4.2 (3.5-5.1) mmol/L Chloride 109 (98-110) mmol/L Carbon Dioxide 23 (21-31) mmol/L BUN 17 (6.0-23.0) mg/dL Creatinine 0.8 (0.6-1.5) mg/dL Est Cr Clr Drug Dosing TNP Estimated GFR (MDRD) > 60.0 ml/min Glucose 124 H (60-110) mg/dL Calcium 9.8 (8.8-10.8) mg/dL Total Bilirubin 0.5 (0.1-1.5) mg/dL AST 24 (5-40) IU/L ALT 27 (8-54) IU/L Alkaline Phosphatase 117 (40-150) Troponin I (0.0-0.29) NG/ML Total Protein 7.7 (6.0-8.0) g/dL Albumin 4.4 (3.5-5.0) g/dL Globulin 3.3 (2.0-3.5) g/dL Albumin/Globulin Ratio 1.3 (1.3-2.8) TSH 3rd Generation 0.21 L (0.47-5.0) uIU/mL 01/24/17 Range/Units 11:37 WBC (4.0-11.0) K/uL RBC (4.30-5.90) M/uL Hgb (12.0-16.0) g/dL Hct (36.0-46.0) % MCV (80.0-98.0) fL MCH (27.0-32.0) pg MCHC (31.0-37.0) g/dL RDW Std Deviation (28.0-62.0) fl RDW Coeff of Mariano (11.0-15.0) % Plt Count (150-400) K/uL MPV (7.40-12.00) fL Neut % (Auto) (48.0-80.0) % Lymph % (Auto) (16.0-40.0) % Graves % (Auto) (0.0-15.0) % Eos % (Auto) (0.0-7.0) % Baso % (Auto) (0.0-1.5) % Neut # (Auto) (1.4-5.7) K/uL Lymph # (Auto) (0.6-2.4) K/uL Graves # (Auto) (0.0-0.8) K/uL Eos # (Auto) (0.0-0.7) K/uL Baso # (Auto) (0.0-0.1) K/uL Nucleated RBC % /100WBC Nucleated RBCs # K/uL INR (0.86-1.11) Sodium (136-146) mmol/L Potassium (3.5-5.1) mmol/L Chloride (98-110) mmol/L Carbon Dioxide (21-31) mmol/L BUN (6.0-23.0) mg/dL Creatinine (0.6-1.5) mg/dL Est Cr Clr Drug Dosing Estimated GFR (MDRD) ml/min Glucose (60-110) mg/dL Calcium (8.8-10.8) mg/dL Total Bilirubin (0.1-1.5) mg/dL AST (5-40) IU/L ALT (8-54) IU/L Alkaline Phosphatase (40-150) Troponin I < 0.10 (0.0-0.29) NG/ML Total Protein (6.0-8.0) g/dL Albumin (3.5-5.0) g/dL Globulin (2.0-3.5) g/dL Albumin/Globulin Ratio (1.3-2.8) TSH 3rd Generation (0.47-5.0) uIU/mL Meds: Medications Generic Name Dose Route Start Last Admin Trade Name Freq PRN Reason Stop Dose Admin Sodium Chloride 1,000 mls @ 250 mls/hr 01/24/17 11:13 01/24/17 11:29 Normal Saline IV 01/24/17 15:12 250 mls/hr STAT ONE Administration Metoprolol Succinate 50 mg 01/24/17 12:45 01/24/17 12:48 Toprol Xl PO 50 mg DAILY FERNANDO Administration Discontinued Medications Generic Name Dose Route Start Last Admin Trade Name Freq PRN Reason Stop Dose Admin Aspirin 243 mg 01/24/17 11:14 01/24/17 11:26 Aspirin PO 01/24/17 11:15 243 mg ONETIME ONE Administration Aspirin Confirm 01/24/17 11:24 01/24/17 11:31 Aspirin Administered 01/24/17 11:25 Not Given Dose 162 mg .ROUTE .STK-MED ONE Diltiazem HCl 20 mg 01/24/17 11:11 01/24/17 11:28 Diltiazem IVPUSH 01/24/17 11:12 20 mg ONETIME ONE Administration Enoxaparin Sodium 90 mg 01/24/17 11:12 01/24/17 11:27 Lovenox SUBCUT 01/24/17 11:13 90 mg ONETIME ONE Administration Departure - Departure Time of Disposition: 14:59 Disposition: Home, Self-Care 01 Condition: Good Clinical Impression: Hyperthyroidism Atrial fibrillation Qualifiers: Atrial fibrillation type: unspecified Qualified Code(s): I48.91 - Unspecified atrial fibrillation Referrals: Julio Nolan MD [Primary Care Provider] - Forms: ED Department Discharge Additional Instructions: The following information is given to patients seen in the emergency department who are being discharged to home. This information is to outline your options for follow-up care. We provide all patients seen in our emergency department with a follow-up referral. The need for follow-up, as well as the timing and circumstances, are variable depending upon the specifics of your emergency department visit. If you don't have a primary care physician on staff, we will provide you with a referral. We always advise you to contact your personal physician following an emergency department visit to inform them of the circumstance of the visit and for follow-up with them and/or the need for any referrals to a consulting specialist. The emergency department will also refer you to a specialist when appropriate. This referral assures that you have the opportunity for follow-up care with a specialist. All of these measure are taken in an effort to provide you with optimal care, which includes your follow-up. Under all circumstances we always encourage you to contact your private physician who remains a resource for coordinating your care. When calling for follow-up care, please make the office aware that this follow-up is from your recent emergency room visit. If for any reason you are refused follow-up, please contact the [facility] emergency department at and asked to speak to the emergency department charge nurse. [facility] Dr. Chencho Gil [address] [place] [id number] [facility] [address] [place] [id number] 1. Patient will start her metoprolol 50 mg twice daily by mouth and start Xarelto to 20 mg 1 tablet daily as directed by her psychiatric lpn. Dr. Bermudez to see her on Saturday. 2. Please follow-up with your primary care provider or endocrinologists to follow-up on your thyroid level. As this medication may to be adjusted. 3. If symptoms return or worsen please follow-up in the emergency room as directed as discussed - My Orders Last 24 Hours: My Active Orders 01/24/17 11:13 Sodium Chloride 0.9% [Normal Saline] 1,000 ml IV STAT 01/24/17 11:14 EKG Documentation Completion [RC] STAT 01/24/17 12:45 Metoprolol Succinate [Toprol XL] 50 mg PO DAILY - Assessment/Plan Last 24 Hours: My Active Orders 01/24/17 11:13 Sodium Chloride 0.9% [Normal Saline] 1,000 ml IV STAT 01/24/17 11:14 EKG Documentation Completion [RC] STAT 01/24/17 12:45 Metoprolol Succinate [Toprol XL] 50 mg PO DAILY
[2017-01-24] MEDS ORDERED: Aspirin 81 MG Tab.Chew ONE (11:24)
[2017-01-24 12:09] LABS: CHLORIDE,CL 109 mmol/L (98-110); SODIUM,NA 142 mmol/L (136-146)
--- NOTE | 2017-01-24 12:25 | CR ---
EXAMINATION: Two-view chest (PA and Lateral views). HISTORY: Palpitations. FINDINGS: The trachea is midline. The cardiomediastinal silhouette is within normal limits. No pulmonary infilt rates, effusions or pneumothorax. Osseous structures appear unremarkable. IMPRESSION: No acute cardiopulmonary process.
[2017-01-24] MEDS ORDERED: Metoprolol Succinate 50 MG Tab.ER PO SCH (12:45)
[2017-01-24 15:33] VITALS: BP 132/87
--- NOTE | 2017-01-24 17:35 | CONS ---
DATE OF CONSULTATION: DATE OF : 1965 PRIMARY CARE PHYSICIAN: None PCP REASON FOR CONSULTATION: Atrial fibrillation with RVR. HISTORY OF PRESENT ILLNESS: This is a 51-year-old female, who had a history of paroxysmal atrial fibrillation, did not have a history of hypertension, diabetes, or history of stroke, or CHF, came in here to the hospital because she started having palpitations since last night, and when she was here she was found to have atrial fibrillation RVR with a heart rate of 120. She was prescribed with metoprolol 25 once a day and also on aspirin 81 mg once a day. However, she told the ER doctor that she is taking Toprol-XL 50 mg once a day and when she got here, her blood pressure seemed to be stable. No chest pain. No dizziness. No shortness of breath, but she feels palpitations. PAST MEDICAL HISTORY: Including paroxysmal atrial fibrillation, sleep study is still pending. ALLERGIES: She is allergic to Sudafed, make her palpitation. SOCIAL HISTORY: She denies smoking, drinking, or drug use. FAMILY HISTORY: No family history of CAD, atrial fibrillation. PHYSICAL EXAMINATION: VITAL SIGNS: Blood pressure is 132/93, heart rate of 135, O2 saturation 97%, and respirations 17. MEDICATIONS: She was given with diltiazem 20 mg IV push, metoprolol 50 mg was given once, aspirin 81. ASSESSMENT AND PLAN: This is a 51-year-old female, who has a paroxysmal atrial fibrillation, and I have talked to her about atrial fibrillation ablation as well as antiarrhythmic medication. I will rate control her for now with increasing metoprolol to 50 twice a day as well as start her on Xarelto. Just in case, she has not converted back to sinus rhythm for possible cardioversion and we will see her in next week. ANDERS CORTEZ /[id number] RAUDEL
== END 2017-01-24 15:30 | disposition home or self-care (01) ==
LOC: MW.ED 11:00
DX: I48.91 Unspecified atrial fibrillation (principal); E05.90 Thyrotoxicosis, unspecified without thyrotoxic crisis or storm; Z79.82 Long term (current) use of aspirin
CPT/HCPCS: 71020; 80053; 84443; 84484; 85025; 85610; 93005; 96361; 96372; 96374; 99285; A9270; J1650; J3490; J7040; 99283

== ENCOUNTER 2017-02-02 22:31 | Emergency (ER) | payer BC ==
[2017-02-02] MEDS ORDERED: Diltiazem 25 MG/5 ML SDV IVPUSH ONE (22:47)
--- NOTE | 2017-02-02 22:48 | EDM.PDOC ---
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 fib with a response in the 130 to 150 range. She denies chest pain or any other concern Review of systems: As per history of present illness and below otherwise all systems reviewed and negative. Past medical history: As per history of present illness and as reviewed below otherwise noncontributory. Surgical history: As per history of present illness and as reviewed below otherwise noncontributory. Social history: No reported history of drug or alcohol abuse. Family history: As per history of present illness and as reviewed below otherwise noncontributory. Physical exam: HEENT: Atraumatic, normocephalic, pupils reactive, negative for conjunctival pallor or scleral icterus, mucous membranes moist, throat clear, neck supple, nontender, trachea midline. Lungs: Clear to auscultation, breath sounds equal bilaterally, chest nontender. Heart: S1S2, irregularly irregular rate of 132, negative for clicks, rubs, or JVD. Abdomen: Soft, nondistended, nontender. Negative for masses or hepatosplenomegaly. Negative for costovertebral tenderness. Pelvis: Stable nontender. Genitourinary: Deferred. Rectal: Deferred. Extremities: Atraumatic, negative for cords or calf pain. Neurovascular unremarkable. Neuro: Awake, alert, oriented. Cranial nerves II through XII unremarkable. Cerebellum unremarkable. Motor and sensory unremarkable throughout. Exam nonfocal. Diagnostics: CBC CMP PT/INR troponin chest x-ray EKG Therapeutics: The O2 monitor Cardizem 25 mg IV Impression: #1 atrial fibrillation with rapid ventricular response Definitive disposition and diagnosis as appropriate pending reevaluation and review of above. Left Upper Chest Pain Score (Numeric/FACES): 2 - Related Data Allergies Allergy/AdvReac Type Severity Reaction Status Date / Time No Known Allergies Allergy Verified 01/24/17 11:12 Home Meds: Home Meds Metoprolol Succinate [Toprol XL] 50 mg PO DAILY 01/24/17 [History] Levothyroxine Sodium [Synthroid] 112 mcg PO ACBREAKFAST 02/02/17 [History] Rivaroxaban [Xarelto] 20 mg PO DAILY 02/02/17 [History] Past Medical History Cardiovascular History: Reports: Afib Endocrine/Metabolic History: Reports: Hypothyroidism - Infectious Disease History Infectious Disease History: Reports: Chicken Pox - Past Surgical History Other Musculoskeletal Surgeries/Procedures:: carpal tunnel to both wrists and R heel bone spurs removed Social & Family History - Family History Family Medical History: Noncontributory Cardiac: Reports: Afib - Tobacco Use Smoking Status *Q: Never Smoker Second Hand Smoke Exposure: No - Caffeine Use Caffeine Use: Reports: Soda Other Caffeine Use: Small amount only Caffeine Use Comment: rarely - Recreational Drug Use Recreational Drug Use: No Drug Use in Last 12 Months: No ED ROS GENERAL - Review of Systems Review Of Systems: ROS reveals no pertinent complaints other than HPI. ED EXAM, GENERAL - Physical Exam Exam: See Below (The dictation) Course - Vital Signs Last Recorded V/S: Last Vital Signs Temp 36.4 C 02/02/17 22:35 Pulse 78 02/02/17 23:38 Resp 17 02/02/17 23:38 BP 98/61 02/02/17 23:38 Pulse Ox 97 02/02/17 23:38 - Orders/Labs/Meds Orders: Active Orders 24 hr Category Date Time Status EKG 12 Lead [EKG Documentation Completion] [RC] STAT Care 02/02/17 22:43 Active Chest 1V Frontal [CR] Stat Exams 02/02/17 22:47 Taken Labs: Laboratory Tests 02/02/17 02/02/17 02/02/17 Range/Units 22:42 22:42 22:42 WBC 7.86 (4.0-11.0) K/uL RBC 4.71 (4.30-5.90) M/uL Hgb 14.1 (12.0-16.0) g/dL Hct 42.3 (36.0-46.0) % MCV 89.8 (80.0-98.0) fL MCH 29.9 (27.0-32.0) pg MCHC 33.3 (31.0-37.0) g/dL RDW Std Deviation 44.4 (28.0-62.0) fl RDW Coeff of Mariano 13 (11.0-15.0) % Plt Count 261 (150-400) K/uL MPV 10.60 (7.40-12.00) fL Neut % (Auto) 53.1 (48.0-80.0) % Lymph % (Auto) 33.5 (16.0-40.0) % Cook % (Auto) 9.9 (0.0-15.0) % Eos % (Auto) 3.1 (0.0-7.0) % Baso % (Auto) 0.4 (0.0-1.5) % Neut # (Auto) 4.2 (1.4-5.7) K/uL Lymph # (Auto) 2.6 H (0.6-2.4) K/uL Cook # (Auto) 0.8 (0.0-0.8) K/uL Eos # (Auto) 0.2 (0.0-0.7) K/uL Baso # (Auto) 0.0 (0.0-0.1) K/uL Nucleated RBC % 0.0 /100WBC Nucleated RBCs # 0 K/uL Sodium 141 (136-146) mmol/L Potassium 4.0 (3.5-5.1) mmol/L Chloride 108 (98-110) mmol/L Carbon Dioxide 21 (21-31) mmol/L BUN 18 (6.0-23.0) mg/dL Creatinine 0.8 (0.6-1.5) mg/dL Est Cr Clr Drug Dosing TNP Estimated GFR (MDRD) > 60.0 ml/min Glucose 107 (60-110) mg/dL Calcium 9.6 (8.8-10.8) mg/dL Total Bilirubin 0.3 (0.1-1.5) mg/dL AST 25 (5-40) IU/L ALT 31 (8-54) IU/L Alkaline Phosphatase 132 (40-150) CK-MB (CK-2) 1.4 (0-6.6) ng/ml Troponin I < 0.10 (0.0-0.29) NG/ML Total Protein 8.3 H (6.0-8.0) g/dL Albumin 4.5 (3.5-5.0) g/dL Globulin 3.8 H (2.0-3.5) g/dL Albumin/Globulin Ratio 1.2 L (1.3-2.8) Meds: Medications Discontinued Medications Generic Name Dose Route Start Last Admin Trade Name Rianq PRN Reason Stop Dose Admin Diltiazem HCl 20 mg 02/02/17 22:47 02/02/17 22:54 Diltiazem IVPUSH 02/02/17 22:48 20 mg ONETIME ONE Administration Departure - Departure Time of Disposition: 05:53 Disposition: Home, Self-Care 01 Condition: Good Clinical Impression: Atrial fibrillation with RVR Instructions: Medical Screening Exam Referrals: Julio Nolan MD [Primary Care Provider] - Forms: ED Department Discharge Additional Instructions: The following information is given to patients seen in the emergency department who are being discharged to home. This information is to outline your options for follow-up care. We provide all patients seen in our emergency department with a follow-up referral. The need for follow-up, as well as the timing and circumstances, are variable depending upon the specifics of your emergency department visit. If you don't have a primary care physician on staff, we will provide you with a referral. We always advise you to contact your personal physician following an emergency department visit to inform them of the circumstance of the visit and for follow-up with them and/or the need for any referrals to a consulting specialist. The emergency department will also refer you to a specialist when appropriate. This referral assures that you have the opportunity for followup care with a specialist. All of these measure are taken in an effort to provide you with optimal care, which includes your followup. Under all circumstances we always encourage you to contact your private physician who remains a resource for coordinating your care. When calling for followup care, please make the office aware that this follow-up is from your recent emergency room visit. If for any reason you are refused follow-up, please contact the [facility] emergency department at and asked to speak to the emergency department charge nurse. Medication as prescribed follow-up as scheduled with cardiology electrophysiology return as needed as discussed Care Plan Goals: ffup with your primary doctor in 1-2 days - My Orders Last 24 Hours: My Active Orders 02/02/17 22:43 EKG 12 Lead [EKG Documentation Completion] [RC] STAT 02/02/17 22:47 Chest 1V Frontal [CR] Stat - Assessment/Plan Last 24 Hours: My Active Orders 02/02/17 22:43 EKG 12 Lead [EKG Documentation Completion] [RC] STAT 02/02/17 22:47 Chest 1V Frontal [CR] Stat
[2017-02-02 23:14] LABS: CHLORIDE,CL 108 mmol/L (98-110); SODIUM,NA 141 mmol/L (136-146)
[2017-02-02 23:39] VITALS: BP 98/61
--- NOTE | 2017-02-05 16:12 | CR ---
EXAM DATE: 02/02/17 PATIENT'S AGE: 51 Patient: JEROME MILTON Facility: [place], [place] Site . Site : 1965 Study: XRay Chest [id number]/[id number] 11:00:11 PM Ordering Physician: Spencer Valenzuela Final Report: INDICATION: Chest Pain TECHNIQUE: Chest 1 view. COMPARISON: 01/24/17 FINDINGS: Cardiovascular and mediastinum: Heart size and vasculature are normal in caliber and appearance. Mediastinum is within normal limits. Lungs and pleural space: Lungs are clear. No sign of infiltrate or mass. No sign of pleural effusion. No pneumothorax. Bones and soft tissues: No significant findings. IMPRESSION: Unremarkable chest. Dictated by: Arley Hare MD @ 02/02/2017 23:03:42 (Electronic Signature) Report Signed by Proxy. [facility] SYSTEMBarbara
== END 2017-02-02 23:40 | disposition home or self-care (01) ==
LOC: MW.ED 22:31
DX: I48.91 Unspecified atrial fibrillation (principal); E03.9 Hypothyroidism, unspecified; Z79.899 Other long term (current) drug therapy
CPT/HCPCS: 71010; 80053; 82553; 84484; 85025; 93005; 96374; 99285; J3490; 99282

== ENCOUNTER 2018-06-19 09:56 | Day surgery (SDC) | payer BC ==
[~2018-06-19 09:56] MED LIST: Lactated Ringers 1,000 ML IV SCH; Mineral Oil/Petrolatum Ophth Oint 3.5 GM Tube ONE; Phenylephrine 1% 10 MG/ML SDV ONE; Remifentanil 1 MG Vial ONE
[2018-06-19] MEDS ORDERED: Propofol 200 MG/20 ML SDV ONE ×4 (10:53→14:08)
[2018-06-19] MEDS ORDERED: Rocuronium 10 MG/ML 10 ML Syringe ONE (10:54)
[2018-06-19] MEDS ORDERED: Midazolam 1 MG/ML 2 ML SDV ONE (10:54)
[2018-06-19] MEDS ORDERED: Dexamethasone 4 MG/ML 5 ML MDV ONE (10:54)
[2018-06-19] MEDS ORDERED: Succinylcholine 200 MG/10 ML MDV ONE (10:54)
[2018-06-19] MEDS ORDERED: Ondansetron 4 MG/2 ML SDV ONE (10:54)
[2018-06-19] MEDS ORDERED: fentaNYL 100 MCG/2 ML SDV ONE (10:54)
--- NOTE | 2018-06-19 11:21 | PCM.PREANE ---
Preanesthetic Assessment - Anesthesia/Transfusion/Family Hx Anesthesia History: Prior Anesthesia Without Reaction Other Type of Anesthesia Reaction Comment: Denies any known problem in past Family History of Anesthesia Reaction: No Transfusion History: No Prior Transfusion(s) - Review of Systems General: No Symptoms Pulmonary: No Symptoms Cardiovascular: No Symptoms Gastrointestinal: No Symptoms Neurological: No Symptoms Other: Reports: None - Physical Assessment NPO Status Date: 06/18/18 NPO Status Time: 22:30 O2 Sat by Pulse Oximetry: 97 Respiratory Rate: 18 Vital Signs: Last Vital Signs Temp 95.9 F 06/19/18 10:45 Pulse 86 06/19/18 10:45 Resp 18 06/19/18 10:45 BP 140/67 06/19/18 10:45 Pulse Ox 97 06/19/18 10:45 Height: 5 ft 6 in Weight: 87.09 kg ASA Class: 2 Mental Status: Alert & Oriented x3 Airway Class: Mallampati = 1 Dentition: Reports: Normal Dentition ROM/Head Extension: Full Lungs: Clear to Auscultation, Normal Respiratory Effort Cardiovascular: Regular Rate, Regular Rhythm - Allergies Allergies/Adverse Reactions: Allergies Allergy/AdvReac Type Severity Reaction Status Date / Time chloraprep Allergy Rash Uncoded 06/16/18 10:12 - Blood Blood Available: No - Anesthesia Plan Pre-Op Medication Ordered: None - Acknowledgements Anesthesia Type Planned: General Anesthesia Pt an Appropriate Candidate for the Planned Anesthesia: Yes Alternatives and Risks of Anesthesia Discussed w Pt/Guardian: Yes Pt/Guardian Understands and Agrees with Anesthesia Plan: Yes Additional Comments: PMH: hx of afib, s/p ablation, no recurrance since ablation, off anticoagulants. 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: Musculoskeletal History: Reports: Arthritis Endocrine/Metabolic History: Reports: Hypothyroidism - Infectious Disease History Infectious Disease History: Reports: Chicken Pox - Past Surgical History Head Surgeries/Procedures: Reports: None Other HEENT Surgeries/Procedures: laser surgery on both eyes for glaucoma Cardiovascular Surgical History: Reports: Cardiac Ablation Musculoskeletal Surgical History: Reports: Arthroscopic Knee, Carpal Tunnel Other Musculoskeletal Surgeries/Procedures:: carpal tunnel to both wrists and R heel bone spurs removed - SUBSTANCE USE Smoking Status *Q: Never Smoker Recreational Drug Use History: No - HOME MEDS Home Medications: Home Meds Aspirin [Adult Aspirin] 81 mg PO DAILY 06/16/18 [History] Levothyroxine Sodium [Synthroid] 125 mcg PO DAILY 06/16/18 [History] - CURRENT (IN HOUSE) MEDS Current Meds: Current Medications Lactated Ringer's (Ringers, Lactated) 1,000 mls @ 100 mls/hr IV ASDIRECTED FERNANDO Last Admin: 06/19/18 10:45 Dose: 100 mls/hr Cefazolin Sodium/Dextrose 2 gm (/ Premix) 50 mls @ 100 mls/hr IV ONETIME ONE Stop: 06/19/18 12:59 Discontinued Medications Dexamethasone (Dexamethasone) Confirm Administered Dose 20 mg .ROUTE .STK-MED ONE Stop: 06/19/18 10:55 Fentanyl (Sublimaze) Confirm Administered Dose 100 mcg .ROUTE .STK-MED ONE Stop: 06/19/18 10:55 Lidocaine HCl (Xylocaine-Mpf 1%) Confirm Administered Dose 5 mls @ as directed .ROUTE .STK-MED ONE Stop: 06/19/18 10:55 Midazolam HCl (Versed 1 Mg/Ml) Confirm Administered Dose 2 mg .ROUTE .STK-MED ONE Stop: 06/19/18 10:55 Mineral Oil/White Petrolatum (Lacri-Lube S.O.P Oint) Confirm Administered Dose 3.5 gm .ROUTE .STK-MED ONE Stop: 06/19/18 07:00 Ondansetron HCl (Zofran) Confirm Administered Dose 4 mg .ROUTE .STK-MED ONE Stop: 06/19/18 10:55 Phenylephrine HCl (Eliu-Synephrine) Confirm Administered Dose 10 mg .ROUTE .STK- MED ONE Stop: 06/19/18 06:53 Propofol (Diprivan 20 Ml) Confirm Administered Dose 600 mg .ROUTE .STK-MED ONE Stop: 06/19/18 10:54 Propofol (Diprivan 20 Ml) Confirm Administered Dose 200 mg .ROUTE .STK-MED ONE Stop: 06/19/18 10:55 Remifentanil (Ultiva) Confirm Administered Dose 2 mg .ROUTE .STK-MED ONE Stop: 06/19/18 07:20 Rocuronium [place] (Zemuron) Confirm Administered Dose 100 mg .ROUTE .STK-MED ONE Stop: 06/19/18 10:55 Succinylcholine Chloride (Quelicin) Confirm Administered Dose 200 mg .ROUTE .[facility] -MED ONE Stop: 06/19/18 10:55
[2018-06-19] MEDS ORDERED: Oxymetazoline 0.05% Nasal Spray 15 ML Bottle ONE (11:38)
[2018-06-19] MEDS ORDERED: Thrombin (Bovine) 5,000 Unit Kit ONE (11:38)
[2018-06-19] MEDS ORDERED: EPINEPHrine 1 MG/ML SDV ONE (11:38)
[2018-06-19] MEDS ORDERED: Lidocaine 2% with EPINEPHrine 1:100,000 20 ML MDV ONE (11:39)
[2018-06-19] MEDS ORDERED: Lidocaine 4% 5 ML Amp ONE (11:46)
[2018-06-19] MEDS ORDERED: ceFAZolin/Dextrose,Iso-Osmotic 2 GM/50 ML Duplex Bag IV ONE (12:07)
--- NOTE | 2018-06-19 12:11 | PCM.HPR ---
H & P Addendum review - H & P Addendum Review Date of Original H & P: 06/09/18 Date Reviewed: 06/19/18 Time Reviewed: 12:00 Patient was Examined: No Changes
[2018-06-19] MEDS ORDERED: ceFAZolin 2 GM in Premix Bag 1 BAG IV ONE (12:30)
[2018-06-19] MEDS ORDERED: fentaNYL 100 MCG/2 ML SDV IVPUSH PRN (14:04)
[2018-06-19] MEDS ORDERED: Remifentanil 1 MG Vial ONE (14:16)
[2018-06-19] MEDS ORDERED: Acetaminophen 1,000 MG in Premix Bag 1 BAG IV ONE (15:09)
[2018-06-19] MEDS ORDERED: oxyCODONE 5 MG Tab PO PRN (15:10)
[2018-06-19] MEDS ORDERED: Ibuprofen 400 MG Tab PO PRN (15:10)
--- NOTE | 2018-06-19 16:03 | PCM.POSTAN ---
POST ANESTHESIA ASSESSMENT - MENTAL STATUS Mental Status: Alert, Oriented - RESPIRATORY Respiratory Status: Respiratory Rate WNL, Airway Patent, O2 Saturation Stable - CARDIOVASCULAR CV Status: Pulse Rate WNL, Blood Pressure Stable - GASTROINTESTINAL GI Status: No Symptoms - POST OP HYDRATION Hydration Status: Adequate & Stable
--- NOTE | 2018-06-19 16:06 | PCM.OPNOTE ---
- General Post-Op/Procedure Note Date of Surgery/Procedure: 06/19/18 Condition: Good Free Text/Narrative:: Diagnosis: Bilateral maxillary sinusitis; bilateral ethmoid sinusitis; right sphenoid sinusitis; right frontal sinusitis. 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 Her symptoms have persistent symptoms despite maximal medical therapy. She was consented for procedure today. Findings: Left rose mary bullosa ; right paradoxical middle turbinate ; Bilateral ostiomeatal unit edema. Healthy mucosa bilateral maxillary sinus. Minimal edematous tissue anterior and posterior ethmoids; polypoid tissue anterior aspect of right sphenoid sinus- removed Operation Details: The [employer] navigation system was set up and the Tracker was fixed to the fore head as per protocol. 3 point tracking was performed and successful registration was obtained. The left middle turbinate axilla and the head of middle turbinate were infiltrated with 2% lidocaine and 1 in 100,000 epinephrine-a total of 3 ml was used. Similar injections were performed on the right side 2 ml was used. A cottonoid pledget soaked in 1: 5, 000 epinephrine each was placed in the middle meatus, draping over the middle turbinate axilla and one in the region of the sphenoethmoid recess - this was done bilaterally. The left side was addressed first. After appropriate period of decongestion the cottonoid pledgets were removed. An incision was made into the rose mary bullosa with sickle knife and this was further dissected with the help of sinus scissors and microdebrider. The middle turbinate was gently medialized with freer elevator and the 0 rigid nasal endoscope was introduced into the middle meatus. The posterior free edge of the uncinate process was identified and medialized with a ball probe. A right sided pediatric backbiter was used to remove the uncinate process at the junction of the horizontal and vertical part. A straight shot tri-cut blade with navigation attached to it was then used to debride the vertical attachment of the uncinate process up to the attachment of Agger nasi cell. A ball probe was then used to identified the left maxillary sinus ostium The horizontal part of the uncinate process was then further dissected away with a ball probe and then with a combination of microdebrider and cold steel dissection. The 30 rigid endoscope was used to examine the maxillary ostium - findings as above. The sinus ostium was enlarged posteriorly with the help of through cuts .The maxillary sinus was thoroughly irrigated with saline. A 0 degree nasal endoscope was used and next the natural ostium of the left bulla ethmoidalis was identified and down fractured with a curette. Further removal of the bulla was performed with a microdebrider blade and anterior ethmoid cells were removed along with the edematous mucosa. The posterior ethmoids were entered by penetrating the ground lamella at the junction of horizontal and vertical part with a curette; further dissection was carried out with a microdebrider and the posterior ethmoid cells were cleared sequentially and edematous mucosa was removed with Blakesley-Ja forceps. The left middle meatus was then finally irrigated with the warm saline and inspected with rigid endoscope. No loose bone chips were identified. At all times the position of instruments was confirmed with [email or web address] navigation and a combination of straight, 90 and 70 degrees suctions and ostium seekers - all navigated were used as required at appropriate times to assist with identifying landmarks and dissection. Attention was then directed towards the right side. The cottonoid pledgets were removed. The middle turbinate was gently medialized with freer elevator and the 0 rigid nasal endoscope was introduced into the middle meatus. The posterior free edge of the uncinate process was identified and medialized with a ball probe. A left sided pediatric backbiter was used to remove the uncinate process at the junction of the horizontal and vertical part. A straight shot tri-cut blade with navigation attached to it was then used to debride the vertical attachment of the uncinate process up to the attachment of Agger nasi cell. A ball probe was then used to identified the right maxillary sinus ostium The horizontal part of the uncinate process was then further dissected away with a ball probe and then with a combination of microdebrider and cold steel dissection. The 30 rigid endoscope was used to examine the maxillary ostium - findings as above. Sinus ostium was enlarged posteriorly with the help of through cut .The maxillary sinus was thoroughly irrigated with saline. A 0 degree nasal endoscope was used and next the natural ostium of the right bulla ethmoidalis was identified and down fractured with a curette. Further removal of the bulla was performed with a microdebrider blade and anterior ethmoid cells were removed along with edematous mucosa The posterior ethmoids were entered by penetrating the ground lamella at the junction of horizontal and vertical part with a curette; further dissection was carried out with a microdebrider and the posterior ethmoid cells were cleared sequentially along with edematous mucosa. Dissection inferior and medial was continued posteriorly and a sphenoidotomy was performed. This was minimally enlarged inferiorly. The sinus mucosa was inspected - edematous mucosa along the anterior aspect of the sphenoid sinus was removed using Blakesley-Ja forceps and microdebrider. Using a 30 degree nasal endoscope the Right frontal sinus ostium was identified posterior - medial to the previously dissected agger nasi cell. This was enlarged by using the [employer] frontal sinus balloon - it was inflated with saline for 5 seconds and then deflated - repeated twice. The frontal recess was visibly enlarghed and the sinus mucosa was healthy. Minimal polypoid mucosa was identified just below the frontal recess and removed with microdebrider. The right middle meatus was then finally irrigated with the warm saline and inspected with rigid endoscope. No loose bone chips were identified. As on the left side at all times the position of instruments was confirmed with [email or web address] navigation and a combination of straight, 90 and 70 degrees suctions and ostium seekers - all navigated were used as required at appropriate times to assist with identifying landmarks and dissection. Post nasal space was suctioned clear of blood bilaterally and per orally. Nasopore was inserted in bilateral middle meatus. A nasal bollster was applied. This completed the procedure and the patient was turned over to the anesthesiologist for recovery. Specimens: none IV fluids: 900 ml Blood loss: 15 mls Blood products: nil Disposition: PACU for recovery Follow up: As planned.
[2018-06-19 17:14] VITALS: BP 132/69
--- NOTE | 2018-06-19 17:54 | PCM48HPAN ---
Post Anesthesia Note - EVALUATION WITHIN 48HRS OF ANESTHETIC Vital Signs in Normal Range: Yes Patient Participated in Evaluation: Yes Respiratory Function Stable: Yes Airway Patent: Yes Cardiovascular Function Stable: Yes Hydration Status Stable: Yes Pain Control Satisfactory: Yes Nausea and Vomiting Control Satisfactory: Yes Mental Status Recovered: Yes Resp Rate: 16 Temperature: 96.8 F
== END 2018-06-19 17:35 | disposition home or self-care (01) ==
LOC: MW.SDS 09:56
PROVIDERS: ATTEND Otolaryngology
DX: J32.4 Chronic pansinusitis (principal); E03.9 Hypothyroidism, unspecified; G47.33 Obstructive sleep apnea (adult) (pediatric); Z79.890 Hormone replacement therapy
CPT/HCPCS: 31240; 31255; 31259; 31296; 61782; A9270; C1726; J0131; J0171; J0330; J0690; J1100; J2001; J2250; J2370; J2405; J2704; J3010; J7120; 00160

== ENCOUNTER 2020-04-17 22:46 | Emergency (ER) | payer BC ==
[2020-04-17] MEDS ORDERED: Sodium Chloride 0.9% 10 ML Syringe FLUSH PRN (23:23)
[2020-04-17] MEDS ORDERED: Sodium Chloride 0.9% 2.5 ML Syringe FLUSH PRN (23:23)
--- NOTE | 2020-04-17 23:33 | EDM.PDOC ---
ED HPI GENERAL MEDICAL PROBLEM - General Chief Complaint: Cardiovascular Problem Stated Complaint: CHEST PRESSURE Time Seen by Provider: 04/17/20 23:10 - History of Present Illness INITIAL COMMENTS - FREE TEXT/NARRATIVE: History of present illness: [] Around 5 PM tonight the patient began to feel little bit of pressure in the center of her anterior chest. It was discomfort it was 2 out of 10 in severity. It is remained there but gradually gotten a little bit better. She felt hot and flushed. She has no cough. Not short of breath. It did not get worse with exertion or with rest. Severity is 1 out of 10 now. No longer smokes. She is not on exogenous hormones. She does not have any recent immobilization surgery or cast. She does not have any recent long trips. The patient has negative family history for thromboembolic disease and heart disease. Patient has a past history of atrial fibrillation with an ablation and has not been in atrial failure on blood thinner for years. Review of systems: As per history of present illness and below otherwise all systems reviewed and negative. Past medical history: As per history of present illness and as reviewed below otherwise noncontributory. Surgical history: As per history of present illness and as reviewed below otherwise noncontributory. Social history: No reported history of drug or alcohol abuse. Family history: As per history of present illness and as reviewed below otherwise noncontributory. Physical exam: Constitutional - well developed, well-nourished and in no acute distress HEENT - normocephalic, no evidence of trauma - external nose and mouth normal - no mass in neck and no JVD - mucosae moist EYES - full EOM, PERRL, no icterus - no evidence of inflammation, injection, or drainage Respiratory - no respiratory distress, equal bilateral expansion, lungs clear to auscultation and no abnormal lung sounds Cardiovascular - Regular Rhythm with S1 and S2 appreciated and no murmur, gallop or rub. GI - abdomen soft without distension or organomegaly - normal bowel sounds - no guard or rebound Musculoskeletal no gross deformity of long bones or joints - no tenderness, swelling or edema Neurologic - Alert and oriented times four - CN II-XII grossly intact - motor sensory and coordination symmetrically normal Psychiatric - appropriate mood and affect with normal thought content Hematologic - No petechiae or purpura - mucosa appropriate color and sclera not pale - normal nail bed color and refill Integument - no rash or evidence of trauma - normal turgor Diagnostics: [] Therapeutics: [] Impression: [] Plan: [] Definitive disposition and diagnosis as appropriate pending reevaluation and review of above. chest Pain Score (Numeric/FACES): 2 - Related Data Allergies Allergy/AdvReac Type Severity Reaction Status Date / Time chloraprep Allergy Rash Uncoded 04/17/20 22:57 Home Meds: Home Meds Aspirin [Adult Aspirin] 81 mg PO DAILY 06/16/18 [History] Levothyroxine Sodium [Synthroid] 125 mcg PO DAILY 06/16/18 [History] Past Medical History HEENT History: Reports: Impaired Vision Other HEENT History: glasses Cardiovascular History: Reports: Afib Other Cardiovascular History: Afib w/RVR Other Gastrointestinal History: occasional heartburn Genitourinary History: Reports: None [employer] WORK[employer] History: Reports: Musculoskeletal History: Reports: Arthritis Psychiatric History: Reports: None Endocrine/Metabolic History: Reports: Hypothyroidism Hematologic History: Reports: None - Infectious Disease History Infectious Disease History: Reports: Chicken Pox - Past Surgical History Head Surgeries/Procedures: Reports: None Other HEENT Surgeries/Procedures: laser surgery on both eyes for glaucoma Cardiovascular Surgical History: Reports: Cardiac Ablation Musculoskeletal Surgical History: Reports: Arthroscopic Knee, Carpal Tunnel Other Musculoskeletal Surgeries/Procedures:: carpal tunnel to both wrists and R heel bone spurs removed Social & Family History - Family History Family Medical History: No Pertinent Family History Cardiac: Reports: Afib Neurological: Reports: CVA Endocrine/Metabolic: Reports: Other (See Below) Other Endocrine/Metabolic Family History: Diabetes, unknown what type - Tobacco Use Tobacco Use Status *Q: Never Tobacco User - Caffeine Use Caffeine Use: Reports: Soda Other Caffeine Use: Small amount only Caffeine Use Comment: rarely - Recreational Drug Use Recreational Drug Use: No ED ROS GENERAL - Review of Systems Review Of Systems: Comprehensive ROS is negative, except as noted in HPI. ED EXAM, GENERAL - Physical Exam Exam: See Below Free Text/Narrative:: My physical exam is in the HPI #1 Interpretation EKG Interpretation Comments: EG done 04/17/2020 at 2252 hrs. and interpreted at 2254. Sinus tachycardia. Heart rate 113. VA 145. Ovid 71. QT 430. Normal QRS. ST and T are unremarkable. The EKG compared to the 06/05/2018 there is no significant change. Impression no acute injury Course - Vital Signs Last Recorded V/S: Last Vital Signs Temp 37.5 C 04/17/20 22:58 Pulse 102 H 04/17/20 23:16 Resp 20 04/17/20 23:16 BP 108/64 04/17/20 23:16 Pulse Ox 95 04/17/20 23:16 - Orders/Labs/Meds Orders: Active Orders 24 hr Category Date Time Status EKG Documentation Completion [RC] AM Care 04/17/20 23:23 Active Sodium Chloride 0.9% [Saline Flush] Med 04/17/20 23:23 Active 10 ml FLUSH ASDIRECTED PRN Sodium Chloride 0.9% [Saline Flush] Med 04/17/20 23:23 Active 2.5 ml FLUSH ASDIRECTED PRN Saline Lock Insert [OM.PC] Stat Oth 04/17/20 23:24 Ordered Medication Orders Sodium Chloride (Saline Flush) 10 ml FLUSH ASDIRECTED PRN PRN Reason: Keep Vein Open Sodium Chloride (Saline Flush) 2.5 ml FLUSH ASDIRECTED PRN PRN Reason: Keep Vein Open Labs: Laboratory Tests 04/17/20 04/17/20 04/17/20 Range/Units 22:55 22:55 22:55 WBC 20.43 H (4.0-11.0) K/uL RBC 4.86 (4.30-5.90) M/uL Hgb 14.4 (12.0-16.0) g/dL Hct 43.9 (36.0-46.0) % MCV 90.3 (80.0-98.0) fL MCH 29.6 (27.0-32.0) pg MCHC 32.8 (31.0-37.0) g/dL RDW Std Deviation 42.7 (28.0-62.0) fl RDW Coeff of Mariano 13 (11.0-15.0) % Plt Count 242 (150-400) K/uL MPV 10.70 (7.40-12.00) fL Neut % (Auto) 91.6 H (48.0-80.0) % Lymph % (Auto) 3.7 L (16.0-40.0) % Bremer % (Auto) 4.5 (0.0-15.0) % Eos % (Auto) 0.1 (0.0-7.0) % Baso % (Auto) 0.1 (0.0-1.5) % Neut # (Auto) 18.7 H (1.4-5.7) K/uL Lymph # (Auto) 0.8 (0.6-2.4) K/uL Bremer # (Auto) 0.9 H (0.0-0.8) K/uL Eos # (Auto) 0.0 (0.0-0.7) K/uL Baso # (Auto) 0.0 (0.0-0.1) K/uL Nucleated RBC % 0.0 /100WBC Nucleated RBCs # 0 K/uL Sodium 139 (136-145) mmol/L Potassium 3.7 (3.5-5.1) mmol/L Chloride 102 (98-107) mmol/L Carbon Dioxide 26.8 (21.0-32.0) mmol/L BUN 22 H (7.0-18.0) mg/dL Creatinine 1.0 (0.6-1.0) mg/dL Est Cr Clr Drug Dosing 58.81 mL/min Estimated GFR (MDRD) 57.4 ml/min Glucose 121 H (74-106) mg/dL Calcium 9.5 (8.5-10.1) mg/dL Total Bilirubin 0.8 (0.2-1.0) mg/dL AST 21 (15-37) IU/L ALT 36 (14-63) IU/L Alkaline Phosphatase 114 (46-116) U/L Troponin I < 0.050 (0.000-0.056) ng/mL Total Protein 8.5 H (6.4-8.2) g/dL Albumin 4.5 (3.4-5.0) g/dL Globulin 4.0 (2.6-4.0) g/dL Albumin/Globulin Ratio 1.1 (0.9-1.6) Free T4 (0.76-1.46) ng/dL TSH 3rd Generation 0.04 L (0.36-3.74) uIU/mL Urine Color Urine Appearance Urine pH (5.0-8.0) Ur Specific [place] (1.001-1.035) Urine Protein (NEGATIVE) mg/dL Urine Glucose (UA) (NEGATIVE) mg/dL Urine Ketones (NEGATIVE) mg/dL Urine Occult Blood (NEGATIVE) Urine Nitrite (NEGATIVE) Urine Bilirubin (NEGATIVE) Urine Urobilinogen (<2.0) EU/dL Ur Leukocyte Esterase (NEGATIVE) SARS-CoV-2 RNA (PRICILLA) (NEGATIVE) 04/17/20 04/18/20 04/18/20 Range/Units 22:55 00:00 00:05 WBC (4.0-11.0) K/uL RBC (4.30-5.90) M/uL Hgb (12.0-16.0) g/dL Hct (36.0-46.0) % MCV (80.0-98.0) fL MCH (27.0-32.0) pg MCHC (31.0-37.0) g/dL RDW Std Deviation (28.0-62.0) fl RDW Coeff of Mariano (11.0-15.0) % Plt Count (150-400) K/uL MPV (7.40-12.00) fL Neut % (Auto) (48.0-80.0) % Lymph % (Auto) (16.0-40.0) % Bremer % (Auto) (0.0-15.0) % Eos % (Auto) (0.0-7.0) % Baso % (Auto) (0.0-1.5) % Neut # (Auto) (1.4-5.7) K/uL Lymph # (Auto) (0.6-2.4) K/uL Bremer # (Auto) (0.0-0.8) K/uL Eos # (Auto) (0.0-0.7) K/uL Baso # (Auto) (0.0-0.1) K/uL Nucleated RBC % /100WBC Nucleated RBCs # K/uL Sodium (136-145) mmol/L Potassium (3.5-5.1) mmol/L Chloride (98-107) mmol/L Carbon Dioxide (21.0-32.0) mmol/L BUN (7.0-18.0) mg/dL Creatinine (0.6-1.0) mg/dL Est Cr Clr Drug Dosing mL/min Estimated GFR (MDRD) ml/min Glucose (74-106) mg/dL Calcium (8.5-10.1) mg/dL Total Bilirubin (0.2-1.0) mg/dL AST (15-37) IU/L ALT (14-63) IU/L Alkaline Phosphatase (46-116) U/L Troponin I (0.000-0.056) ng/mL Total Protein (6.4-8.2) g/dL Albumin (3.4-5.0) g/dL Globulin (2.6-4.0) g/dL Albumin/Globulin Ratio (0.9-1.6) Free T4 1.14 (0.76-1.46) ng/dL TSH 3rd Generation (0.36-3.74) uIU/mL Urine Color YELLOW Urine Appearance CLEAR Urine pH 6.0 (5.0-8.0) Ur Specific [place] 1.015 (1.001-1.035) Urine Protein NEGATIVE (NEGATIVE) mg/dL Urine Glucose (UA) NEGATIVE (NEGATIVE) mg/dL Urine Ketones TRACE H (NEGATIVE) mg/dL Urine Occult Blood NEGATIVE (NEGATIVE) Urine Nitrite NEGATIVE (NEGATIVE) Urine Bilirubin NEGATIVE (NEGATIVE) Urine Urobilinogen 0.2 (<2.0) EU/dL Ur Leukocyte Esterase NEGATIVE (NEGATIVE) SARS-CoV-2 RNA (PRICILLA) NEGATIVE (NEGATIVE) Meds: Medications Generic Name Dose Route Start Last Admin Trade Name Freq PRN Reason Stop Dose Admin Sodium Chloride 10 ml 04/17/20 23:23 Saline Flush FLUSH ASDIRECTED PRN Keep Vein Open Sodium Chloride 2.5 ml 04/17/20 23:23 Saline Flush FLUSH ASDIRECTED PRN Keep Vein Open Departure - Departure Time of Disposition: 01:12 Disposition: Home, Self-Care 01 Condition: Good Clinical Impression: Atypical chest pain Referrals: Julio Nolan MD [Primary Care Provider] - Forms: ED Department Discharge Additional Instructions: [facility] - cardiology [address] [place] [id number] The following information is given to patients seen in the emergency department who are being discharged to home. This information is to outline your options for follow-up care. We provide all patients seen in our emergency department with a follow-up referral. The need for follow-up, as well as the timing and circumstances, are variable depending upon the specifics of your emergency department visit. If you don't have a primary care physician on staff, we will provide you with a referral. We always advise you to contact your personal physician following an emergency department visit to inform them of the circumstance of the visit and for follow-up with them and/or the need for any referrals to a consulting specialist. The emergency department will also refer you to a specialist when appropriate. This referral assures that you have the opportunity for follow-up care with a specialist. All of these measure are taken in an effort to provide you with optimal care, which includes your follow-up. Under all circumstances we always encourage you to contact your private physician who remains a resource for coordinating your care. When calling for follow-up care, please make the office aware that this follow-up is from your recent emergency room visit. If for any reason you are refused follow-up, please contact the [facility] Emergency Department at and asked to speak to the emergency department charge nurse. Sepsis Event Note (ED) - Evaluation Sepsis Screening Result: No Definite Risk - Focused Exam Vital Signs: Vital Signs Temp Pulse Resp BP Pulse Ox 04/17/20 23:16 102 H 20 108/64 95 04/17/20 22:58 37.5 C 103 H 18 132/65 96 - My Orders Last 24 Hours: My Active Orders 04/17/20 23:23 EKG Documentation Completion [RC] AM Sodium Chloride 0.9% [Saline Flush] 10 ml FLUSH ASDIRECTED PRN Sodium Chloride 0.9% [Saline Flush] 2.5 ml FLUSH ASDIRECTED PRN 04/17/20 23:24 Saline Lock Insert [OM.PC] Stat - Assessment/Plan Last 24 Hours: My Active Orders 04/17/20 23:23 EKG Documentation Completion [RC] AM Sodium Chloride 0.9% [Saline Flush] 10 ml FLUSH ASDIRECTED PRN Sodium Chloride 0.9% [Saline Flush] 2.5 ml FLUSH ASDIRECTED PRN 04/17/20 23:24 Saline Lock Insert [OM.PC] Stat
[2020-04-17 23:44] LABS: BLOOD UREA NITROGEN,BUN 22 mg/dL (7.0-18.0); CARBON DIOXIDE,CO2 26.8 mmol/L (21.0-32.0); CHLORIDE,CL 102 mmol/L (98-107); GLUCOSE RANDOM 121 mg/dL (74-106); POTASSIUM,K 3.7 mmol/L (3.5-5.1); SODIUM,NA 139 mmol/L (136-145)
--- NOTE | 2020-04-18 00:10 | CR ---
Indication: Chest pain Technique: Chest 1 view Comparison: Chest x-ray 07/25/2017 Findings/Impression: Cardiovascular and mediastinum: Heart size and vasculature are normal in caliber and appearance. Lungs and pleural space: Lungs are clear. No sign of infiltrate or mass. No sign of pleural effusion. No pneumothorax. Bones and soft tissues: No acute findings. Dictated by Chente Barkley MD @ Apr 18 2020 12:08AM Signed by Dr. Chente Barkley @ Apr 18 2020 12:08AM
[2020-04-18 01:25] VITALS: BP 123/79; PULSE 101
== END 2020-04-18 01:25 | disposition home or self-care (01) ==
LOC: MW.ED 22:46
DX: R07.89 Other chest pain (principal); R00.0 Tachycardia, unspecified; I48.91 Unspecified atrial fibrillation; M19.90 Unspecified osteoarthritis, unspecified site; E03.9 Hypothyroidism, unspecified; Z88.8 Allergy status to other drugs, medicaments and biological substances; Z79.82 Long term (current) use of aspirin; Z79.899 Other long term (current) drug therapy; Z20.828 Contact with and (suspected) exposure to other viral communicable diseases
CPT/HCPCS: 36415; 71045; 71045-26; 80053; 81003; 84439; 84443; 84484; 85025; 93005; 93010; 99284; 99285-25; U0002

== ENCOUNTER 2024-12-03 07:25 | Day surgery (SDC) | payer BC ==
[~2024-12-03 07:25] MED LIST changes: -Lactated Ringers 1,000 ML IV SCH; -Mineral Oil/Petrolatum Ophth Oint 3.5 GM Tube ONE; -Phenylephrine 1% 10 MG/ML SDV ONE; -Remifentanil 1 MG Vial ONE; +Sodium Chloride 0.9% 10 ML Syringe FLUSH PRN; +Sodium Chloride 0.9% 2.5 ML Syringe FLUSH PRN
[2024-12-03] MEDS: Lactated Ringers 1,000 ML IV SCH (08:07)
[2024-12-03] MEDS ORDERED: Propofol 200 MG/20 ML SDV ONE (08:07)
[2024-12-03 09:58] VITALS: BP 108/73; PULSE 66
== END 2024-12-03 10:15 | disposition home or self-care (01) ==
LOC: MW.SDS 07:25
PROVIDERS: ATTEND Surgery
DX: Z12.11 Encounter for screening for malignant neoplasm of colon (principal); D12.2 Benign neoplasm of ascending colon; K57.30 Diverticulosis of large intestine without perforation or abscess without bleeding; I48.91 Unspecified atrial fibrillation; E03.9 Hypothyroidism, unspecified; Z88.8 Allergy status to other drugs, medicaments and biological substances; Z79.82 Long term (current) use of aspirin; Z79.890 Hormone replacement therapy; Z79.899 Other long term (current) drug therapy
CPT/HCPCS: 45380; J2003; J2704; J7120; 00811